=== PATIENT | female | born 1980 | race Two or more races ===

== ENCOUNTER 2016-12-16 11:41 | Emergency (ER) | payer SELFPAY ==
[~2016-12-16] VITALS: Ht 152.4 cm; Wt 67.8 kg
[2016-12-16] MEDS ORDERED: IV NORMAL SALINE 1000ML BAG 1,000 ML IV SCH (12:34)
[2016-12-16 12:43] LABS: BASO # 0.1 x10^3/uL (0.0-0.2); BASO % 1 % (0-3); EOS % 7 % (0-3); HEMATOCRIT 40.9 % (36.0-47.0); HEMOGLOBIN 13.9 g/dL (12.0-15.5); LYMPH # 3.5 x10^3/uL (1.0-4.8); LYMPH % 33 % (24-48); MEAN CORPUSCULAR HEMOGLOBIN 30 pg (25-35); MEAN CORPUSCULAR HGB CONC 34 g/dL (31-37); MEAN CORPUSCULAR VOLUME 89 fL (79-100); MONO % 6 % (0-9); NEUT % 53 % (31-73); PLATELET COUNT 395 x10^3/uL (140-400); RED BLOOD COUNT 4.58 x10^6/uL (3.50-5.40); RED CELL DISTRIBUTION WIDTH 12.6 % (11.5-14.5); WHITE BLOOD COUNT 10.7 x10^3/uL (4.0-11.0)
[2016-12-16] MEDS ORDERED: ONDANSETRON PF 4 MG/2 ML VIAL. IV ONE (12:45)
[2016-12-16] MEDS ORDERED: KETOROLAC 30 MG/ML INJ. IV ONE (12:45)
[2016-12-16 12:47] LABS: BILIRUBIN,URINE NEGATIVE (NEG); GLUCOSE,URINE NEGATIVE (NEG); NITRITE,URINE NEGATIVE (NEG); PH,URINE 5.5; PROTEIN,URINE NEGATIVE (NEG-TRACE); UROBILINOGEN,URINE 0.2 mg/dL (0.2 mg/dL)
[2016-12-16] MEDS: 0.9 % SODIUM CHLORIDE 10 ML DISP.SYRIN. IV PRN ×2 (12:49→13:57)
[2016-12-16] MEDS: HYDROmorphone 2 MG/ML VIAL IV/SQ PRN ×3 (12:52→13:57)
[2016-12-16 12:56] LABS: CALCIUM 9.6 mg/dL (8.5-10.1); CREATININE 0.7 mg/dL (0.6-1.0); GFR 95.2; POTASSIUM 3.9 mmol/L (3.5-5.1)
[2016-12-16 13:01] LABS: TOTAL BILIRUBIN 0.3 mg/dL (0.2-1.0); TOTAL PROTEIN 7.9 g/dL (6.4-8.2)
--- NOTE | 2016-12-16 13:02 | PHYS DOC ---
Past Medical History Past Medical History: Asthma Past Surgical History: No Surgical History Alcohol Use: None Drug Use: None Adult General Chief Complaint Chief Complaint: FLANK PAIN HPI HPI Patient is a pleasant otherwise [id number]-year-old female G2 P 2001 with last missed period was 27 November presents with right flank pain radiates to the right upper quadrant. Pain began last night after eating a meal as been persistent and constant since. She says the pain is worse with position and breathing. It is localized and reproducible on exam. She denies any vomiting but has had some nausea with no diarrhea. She denies any UTI symptoms but slight dysuria without vaginal discharge or bleeding. Patient has not had patient's symptoms in the past but has had some fevers and chills with this progressive pain. Patient denies any travel outside the country, antibiotic use or lifting while at work. Pain is 8 of 10 at this time My abdominal pain differential includes but not limited to ectopic , UTI, pyonephritis, cholecystitis, cholelithiasis, pancreatitis, appendicitis, small bowel obstruction, large bowel obstruction, diverticulosis, Diverticulum, intussusception, volvulus, irritable bowel disease, Crohn's or ulcerative colitis, considered upon arrival Review of Systems Review of Systems Constitutional: Subjective fevers and chills. Eyes: Denies change in visual acuity, redness, or eye pain [] HENT: Denies nasal congestion or sore throat [] Respiratory: Denies cough or shortness of breath [] Cardiovascular: No additional information not addressed in HPI [] GI: Localized abdominal pain in the right upper quadrant with nausea no vomiting no bloody stools or diarrhea. : Denies dysuria or hematuria [] Musculoskeletal: Denies back pain or joint pain [] Integument: Denies rash or skin lesions [] Neurologic: Denies headache, focal weakness or sensory changes [] Endocrine: Denies polyuria or polydipsia [] Current Medications Current Medications Current Medications Medications (Trade) Dose Ordered Sig/Uziel Start Time Stop Time Status Last Admin Dose Admin Hydromorphone HCl (Dilaudid) 1 mg PRN Q15MIN PRN 12/16/16 12:45 12/17/16 12:44 12/16/16 13:57 1 MG Ketorolac Tromethamine (Toradol) 30 mg 1X ONCE 12/16/16 12:45 12/16/16 12:46 DC 12/16/16 12:51 30 MG Ondansetron HCl (Zofran) 4 mg 1X ONCE 12/16/16 12:45 12/16/16 12:46 DC 12/16/16 12:50 4 MG Sodium Chloride (Normal Saline Flush) 10 ml QSHIFT PRN 12/16/16 12:45 12/16/16 13:57 10 ML Allergies Allergies Allergies Coded Allergies Type Severity Reaction Last Updated Verified No Known Drug Allergies 12/16/16 No Physical Exam Physical Exam Vital signs recorded on the chart patient noted to be mildly low-grade fever. Constitutional: Well developed, well nourished, no acute distress, non-toxic appearance. [] HENT: Normocephalic, atraumatic, bilateral external ears normal, oropharynx moist, no oral exudates, nose normal. [] Eyes: PERRLA, EOMI, conjunctiva normal, no discharge. [] Neck: Normal range of motion, no tenderness, supple, no stridor. [] Cardiovascular:Heart rate regular rhythm, no murmur [] Lungs & Thorax: Bilateral breath sounds clear to auscultation [] Abdomen: Bowel sounds normal, patient has enters to palpation and voluntary guarding the right upper quadrant. Positive Odom sign. Negative McBurney sign , no rebound organomegaly patient has no pulsatile mass. Skin: Warm, dry, no erythema, no rash. [] Back: No tenderness, no CVA tenderness. [] Extremities: No tenderness, no cyanosis, no clubbing, ROM intact, no edema. [] Neurologic: Alert and oriented X 3, normal motor function, normal sensory function, no focal deficits noted. [] Psychologic: Affect normal, judgement normal, mood normal. [] Current Patient Data Vital Signs Vital Signs Date Time Temp Pulse Resp B/P (MAP) Pulse Ox O2 Delivery O2 Flow Rate FiO2 12/16/16 13:57 20 Room Air 12/16/16 12:45 74 102/71 (81) 99 12/16/16 12:10 99.3 99.3 Lab Values Laboratory Tests Test 12/16/16 12:26 12/16/16 12:29 White Blood Count 10.7 x10^3/uL (4.0-11.0) Red Blood Count 4.58 x10^6/uL (3.50-5.40) Hemoglobin 13.9 g/dL (12.0-15.5) Hematocrit 40.9 % (36.0-47.0) Mean Corpuscular Volume 89 fL (79-100) Mean Corpuscular Hemoglobin 30 pg (25-35) Mean Corpuscular Hemoglobin Concent 34 g/dL (31-37) Red Cell Distribution Width 12.6 % (11.5-14.5) Platelet Count 395 x10^3/uL (140-400) Neutrophils (%) (Auto) 53 % (31-73) Lymphocytes (%) (Auto) 33 % (24-48) Monocytes (%) (Auto) 6 % (0-9) Eosinophils (%) (Auto) 7 % (0-3) H Basophils (%) (Auto) 1 % (0-3) Neutrophils # (Auto) 5.6 x10^3uL (1.8-7.7) Lymphocytes # (Auto) 3.5 x10^3/uL (1.0-4.8) Monocytes # (Auto) 0.7 x10^3/uL (0.0-1.1) Eosinophils # (Auto) 0.7 x10^3/uL (0.0-0.7) Basophils # (Auto) 0.1 x10^3/uL (0.0-0.2) Urine Collection Type Unknown Urine Color Yellow Urine Clarity Clear Urine pH 5.5 Urine Specific [place] 1.010 Urine Protein Negative mg/dL (NEG-TRACE) Urine Glucose (UA) Negative mg/dL (NEG) Urine Ketones (Stick) Negative mg/dL (NEG) Urine Blood Moderate (NEG) Urine Nitrite Negative (NEG) Urine Bilirubin Negative (NEG) Urine Urobilinogen Dipstick 0.2 mg/dL (0.2 mg/dL) Urine Leukocyte Esterase Negative (NEG) Urine RBC 1-2 /HPF (0-2) Urine WBC 1-4 /HPF (0-4) Urine Squamous Epithelial Cells Mod /LPF Urine Bacteria Few /HPF (0-FEW) Urine Mucus Slight /LPF Sodium Level 139 mmol/L (136-145) Potassium Level 3.9 mmol/L (3.5-5.1) Chloride Level 103 mmol/L (98-107) Carbon Dioxide Level 26 mmol/L (21-32) Anion Gap 10 (6-14) Blood Urea Nitrogen 23 mg/dL (7-20) H Creatinine 0.7 mg/dL (0.6-1.0) Estimated GFR (Cockcroft-Gault) 95.2 BUN/Creatinine Ratio 33 (6-20) H Glucose Level 97 mg/dL (70-99) Calcium Level 9.6 mg/dL (8.5-10.1) Total Bilirubin 0.3 mg/dL (0.2-1.0) Aspartate Amino Transferase (AST) 25 U/L (15-37) Alanine Aminotransferase (ALT) 37 U/L (14-59) Alkaline Phosphatase 67 U/L (46-116) Total Protein 7.9 g/dL (6.4-8.2) Albumin 4.0 g/dL (3.4-5.0) Albumin/Globulin Ratio 1.0 (1.0-1.7) Lipase 199 U/L (73-393) POC Urine HCG, Qualitative Hcg negative (Negative) Laboratory Tests 12/16/16 12:26 Laboratory Tests 12/16/16 12:26 EKG EKG [] Radiology/Procedures Radiology/Procedures [] [facility] [address] [place] [address] IMAGING REPORT Signed PATIENT: SEAN SOSA ACCOUNT: [id number] : 1980 LOCATION: ER AGE: 36 SEX: F EXAM STATUS: REG ER ORD. PHYSICIAN: WADE SORENSON MD REASON: right flank pain PROCEDURE: CT ABDOMEN PELVIS WO CONTRAST Indication right flank pain with nausea and vomiting for a week. Axial images through the abdomen and pelvis were obtained. Examination was tailored for the detection of renal and/or ureteral calculi. No IV or gastrointestinal contrast was administered. No prior imaging is available. 422 The lung bases are clear. The liver and spleen appear unremarkable. There is cholelithiasis. The gallbladder otherwise appears grossly normal. No pancreatic pathology is seen. The adrenal glands and kidneys appear normal. There are no renal calculi on either side. There is no hydronephrosis hydroureter or calcification seen along the course of either ureter. Occasional calcifications are noted in the left pelvis compatible with phleboliths. An acute finding in the abdomen is not seen. The appendix is seen in the right lower quadrant and appears unremarkable. There is likely a trace amount of free fluid in the pelvis. This would not be uncommon in a 36-year-old female. Occasional diverticula are seen associated with the large bowel. Active inflammation is not seen. IMPRESSION: No acute finding seen in the abdomen or pelvis. Cholelithiasis. PQRS Compliance Statement: One or more of the following individualized dose reduction techniques were utilized for this examination: 1. Automated exposure control 2. Adjustment of the mA and/or kV according to patient size 3. Use of iterative reconstruction technique Course & Med Decision Making Course & Med Decision Making Pertinent Labs and Imaging studies reviewed. (See chart for details) []My abdominal pain differential includes but not limited to ectopic , UTI, pyonephritis, cholecystitis, cholelithiasis, pancreatitis, appendicitis, small bowel obstruction, large bowel obstruction, diverticulosis, Diverticulum, intussusception, volvulus, irritable bowel disease, Crohn's or ulcerative colitis, considered upon arrival differential diagnosis considered upon arrival. Patient is not by [id number] urinalysis doubt ectopic at this time. My concern primarily is cholelithiasis or symptom I cholecystitis given subjective fevers at home. Patient presented with symptom I cholelithiasis. There is no evidence of cholecystitis on CT. Patient has a normal white count of 10.7 with no left shift. H&H is normal and intact. Patient's urinalysis is clear signs of infection. Her lipase is normal, LFTs are normal, This point patient is afebrile feeling more comfortable. I will place her on pain medications Bentyl subsequently for nausea and referred to a general surgeon as an outpatient for elective cystectomy. Especially for symptoms continue. I will give her precautions in [place] and have her follow up appropriately with her primary care doctor referral to a general surgeon in the local community. Final discharge patient's abdominal pain is significantly improved where she has noted numbness in the right upper quadrant. No fevers. Patient denied discussed results of CAT scan and follow-up plan. Patient was at the bedside. Dragon Disclaimer Dragon Disclaimer This electronic medical record was generated, in whole or in part, using a voice recognition dictation system. Departure Departure Impression: Primary Impression: Abdominal pain Additional Impression: Cholelithiasis Disposition: 01 HOME, SELF-CARE Condition: IMPROVED Referrals: NO PCP (PCP) ESTHER RUBIN MD Patient Instructions: Abdominal Pain, Cholelithiasis Additional Instructions: My discharge plan Follow up: In addition patient is asked to followup with their primary doctor, within a week for followup examination and to address patient's ongoing medical conditions. . Patient is advised that in the Emergency Department primary complaints are addressed and only in light of known signs and symptoms. Patient should return immediately to the emergency department if new signs and symptoms develop or patient's condition worsens in any way. At time of discharge patient was in stable condition and had verbalized understanding of the discharge instructions. Although there is no obvious evidence of appendicitis or intra-abdominal catastrophe at this time requiring surgical intervention or immediate medical management you could still develop these issues in the future. I would ask that you return immediately for any increasing symptoms question concerns. Please follow-up with general surgery as requested. Although there is no obvious signs of cholecystitis at this time you could develop an infection of your gallbladder. Please return for any signs of fever greater than 102.2 despite treatment or given any increasing pain despite treatment and last crit in 6-8 hours. Scripts Ondansetron (ZOFRAN ODT) 4 Mg Tab.rapdis 4 MG PO BID Y for NAUSEA/VOMITING for 5 Days, #10 TAB Prov: WADE SORENSON MD 12/16/16 Hydrocodone Bit/Acetaminophen (HYDROCODONE-APAP 5-325 ) 1 Each Tablet 1-2 TAB PO PRN Q6HRS Y for PAIN for 5 Days, #10 TAB 0 Refills Prov: WADE SORENSON MD 12/16/16 Dicyclomine Hcl (BENTYL) 10 Mg Capsule 1 CAP PO TID, #30 CAP 0 Refills Prov: WADE SORENSON MD 12/16/16 Problem Qualifiers WADE SORENSON MD Dec 16, 2016 13:02
[2016-12-16 13:06] LABS: BACTERIA,URINE FEW /HPF (0-FEW); SQUAMOUS EPITHELIAL CELL,UR MOD /LPF
--- NOTE | 2016-12-16 13:24 | RAD ---
Indication right flank pain with nausea and vomiting for a week. Axial images through the abdomen and pelvis were obtained. Examination was tailored for the detection of renal and/or ureteral calculi. No IV or gastrointestinal contrast was administered. No prior imaging is available. 422 The lung bases are clear. The liver and spleen appear unremarkable. There is cholelithiasis. The gallbladder otherwise appears grossly normal. No pancreatic pathology is seen. The adrenal glands and kidneys appear normal. There are no renal calculi on either side. There is no hydronephrosis hydroureter or calcification seen along the course of either ureter. Occasional calcifications are noted in the left pelvis compatible with phleboliths. An acute finding in the abdomen is not seen. The appendix is seen in the right lower quadrant and appears unremarkable. There is likely a trace amount of free fluid in the pelvis. This would not be uncommon in a 36-year-old female. Occasional diverticula are seen associated with the large bowel. Active inflammation is not seen. IMPRESSION: No acute finding seen in the abdomen or pelvis. Cholelithiasis. PQRS Compliance Statement: One or more of the following individualized dose reduction techniques were utilized for this examination: 1. Automated exposure control 2. Adjustment of the mA and/or kV according to patient size 3. Use of iterative reconstruction technique
[2016-12-16 14:20] VITALS: BP 97/57
[2016-12-16] MEDS ORDERED: DICY10CA53 PO (14:35)
[2016-12-16] MEDS ORDERED: ONDA4TAB10 PO (14:35)
[2016-12-16] MEDS ORDERED: HYDR-2758 PO (14:35)
== END 2016-12-16 14:49 | disposition home or self-care (01) ==
LOC: ER 11:41
DX: K80.20 Calculus of gallbladder without cholecystitis without obstruction (principal); J45.909 Unspecified asthma, uncomplicated
CPT/HCPCS: 36415; 74176; 80053; 81001; 81025; 83690; 85025; 96361; 96374; 96375; 96376; 99285; J1170; J1885; J2405; J7030